=== PATIENT | female | born 1985 | race African-American/Black ===

== ENCOUNTER 2018-01-17 18:27 | Emergency (ER) | payer BC ==
[~2018-01-17] VITALS: Ht 147.3 cm; Wt 78.9 kg
[2018-01-17 18:36] VITALS: BP_SYST 156
[2018-01-17 19:30] LABS: BLOOD, URINE 3+ (NEGATIVE); CLARITY/URINE CLEAR (CLEAR); GLUCOSE,URINE NEGATIVE (NEGATIVE); KETONES,URINE TRACE (NEGATIVE); NITRITE, URINE NEGATIVE (NEGATIVE); PROTEIN URINE TRACE (NEGATIVE); UROBILINOGEN,URINE 0.2 (0.2-1.0)
[2018-01-17] MEDS ORDERED: ASPIRIN 325 MG TABLET PO ONE (19:30)
[2018-01-17 19:39] LABS: BILIRUBIN,URINE NEGATIVE (NEGATIVE); COLOR,URINE AMBER (YELLOW); LEUKOCYTE ESTERASE ,URINE 1+ (NEGATIVE)
[2018-01-17 19:40] LABS: BACTERIA,URINE FEW /HPF (None Seen); MUCUS,URINE None Seen /LPF (None Seen)
[2018-01-17 19:55] LABS: EOSINOPHILS # (AUTO) 0.2 K/uL (0.0-0.4); HEMOGLOBIN 13.3 g/dL (12.0-16.0); LYMPHOCYTES # (AUTO) 1.9 K/uL (1.0-5.5); MONOCYTES # (AUTO) 0.6 K/uL (0.0-1.0); WHITE BLOOD COUNT (AUTO) 6.9 K/uL (4.8-10.8)
[2018-01-17 20:00] LABS: BASOPHILS # (AUTO) 0.1 K/uL (0.0-0.2); BASOPHILS % (AUTO) 1.8 % (0.0-2.0); EOSINOPHILS % (AUTO) 2.6 % (0.0-4.0); HEMATOCRIT 41.1 % (36-48); LYMPHOCYTES % (AUTO) 27.4 % (20.5-51.5); MEAN CORPUSCULAR HEMOGLOBIN 31 pg (27-31); MEAN CORPUSCULAR HGB CONC 32 % (32-36); MEAN CORPUSCULAR VOLUME 96 fL (79.0-98.0); NEUTROPHILS # (AUTO) 4.1 K/uL (1.8-7.7); NEUTROPHILS % (AUTO) 59.2 % (40.0-70.0); PLATELET COUNT (AUTO) 350 K/uL (130-430); RED BLOOD CELL COUNT(AUTO) 4.27 MIL/uL (4.2-6.2); RED CELL DISTRIBUTION WIDTH 13.2 % (9.0-15.0)
[2018-01-17 20:04] LABS: CALCIUM 8.8 mg/dL (8.4-11.0); CREATININE 0.77 mg/dL (0.55-1.30); POTASSIUM 3.3 mmol/L (3.5-5.1)
[2018-01-17 20:09] LABS: ALBUMIN 2.8 g/dL (3.4-4.8); PROTHROMBIN TIME 10.5 SECS (9.5-12.5); TOTAL BILIRUBIN 0.8 mg/dL (0.0-1.0)
[2018-01-17 20:32] LABS: CKMB RELATIVE INDEX 0.2 (0.0-2.9); CREATINE KINASE MB 0.4 ng/mL (0-3.6)
[2018-01-17 22:16] VITALS: BP_SYST 114
== END 2018-01-17 22:17 | disposition home or self-care (01) ==
LOC: SED 18:27
DX: R06.4 Hyperventilation (principal); Z90.710 Acquired absence of both cervix and uterus
CPT/HCPCS: 36415; 71045; 80053; 81000-TC; 82550-TC; 82553-TC; 83880; 84484; 85025; 85379; 85610-TC; 85730-TC; 87086; 93005; 99285

== ENCOUNTER 2018-01-29 16:18 | Emergency (ER) | payer BC, OTHER ==
[~2018-01-29] VITALS: Ht 147.3 cm; Wt 77.6 kg
[2018-01-29 16:40] VITALS: BP_SYST 158
[2018-01-29 17:36] LABS: BILIRUBIN,URINE 2+ (NEGATIVE); BLOOD, URINE 3+ (NEGATIVE); CLARITY/URINE HAZY (CLEAR); COLOR,URINE AMBER (YELLOW); GLUCOSE,URINE NEGATIVE (NEGATIVE); KETONES,URINE 2+ (NEGATIVE); LEUKOCYTE ESTERASE ,URINE TRACE (NEGATIVE); NITRITE, URINE POSITIVE (NEGATIVE); PROTEIN URINE TRACE (NEGATIVE)
[2018-01-29 17:56] LABS: BACTERIA,URINE MODERATE /HPF (None Seen); WBC,URINE 0-3 /HPF (0-3)
[2018-01-29 17:57] LABS: MUCUS,URINE 1+ /LPF (None Seen)
--- NOTE | 2018-01-29 18:33 | NUR ---
BROUGHT BACK TO BED #7 AND REPORT GIVEN TO RADHA
--- NOTE | 2018-01-29 18:40 | NUR ---
Patient to ER via triage for evaluation of abdominal pain with nausea, vomiting, and diarrhea. Patient is awake, alert and oriented in no acute distress, vital signs stable, respirations even and unlabored, skin warm and dry to touch. Patient able to ambulate to room 7 with slow, steady gait. Awaiting evaluation by ER MD/PA, will continue to observe and assess.
[2018-01-29] MEDS ORDERED: NACL 0.9% 1,000 ML IV ONE (18:56)
[2018-01-29] MEDS ORDERED: ONDANSETRON HCL 4 MG/2 ML VIAL IVP ONE (19:00)
--- NOTE | 2018-01-29 19:27 | NUR ---
# 24 gauge angiocath placed to L HAND. Use of asceptic technique. Opsite placed over site. Blood return noted. Flushed with 10 cc of normal saline. No evidence of infiltration noted. Patient tolerated well.
[2018-01-29 19:29] LABS: BASOPHILS # (AUTO) 0.1 K/uL (0.0-0.2); BASOPHILS % (AUTO) 1.8 % (0.0-2.0); EOSINOPHILS % (AUTO) 0.5 % (0.0-4.0); HEMATOCRIT 41.9 % (36-48); HEMOGLOBIN 13.7 g/dL (12.0-16.0); LYMPHOCYTES # (AUTO) 1.4 K/uL (1.0-5.5); LYMPHOCYTES % (AUTO) 17.2 % (20.5-51.5); MEAN CORPUSCULAR HEMOGLOBIN 32 pg (27-31); MEAN CORPUSCULAR HGB CONC 33 % (32-36); MEAN CORPUSCULAR VOLUME 98 fL (79.0-98.0); MONOCYTES # (AUTO) 0.8 K/uL (0.0-1.0); MONOCYTES % (AUTO) 9.2 % (1.7-9.3); NEUTROPHILS # (AUTO) 5.9 K/uL (1.8-7.7); NEUTROPHILS % (AUTO) 71.3 % (40.0-70.0); PLATELET COUNT (AUTO) 265 K/uL (130-430); RED BLOOD CELL COUNT(AUTO) 4.29 MIL/uL (4.2-6.2); RED CELL DISTRIBUTION WIDTH 13.6 % (9.0-15.0); WHITE BLOOD COUNT (AUTO) 8.2 K/uL (4.8-10.8)
--- NOTE | 2018-01-29 19:35 | NUR ---
FLIGHT/TRANSPORT NURSE AT BEDSIDE.
[2018-01-29 19:55] LABS: CALCIUM 9.2 mg/dL (8.4-11.0); CREATININE 0.82 mg/dL (0.55-1.30); POTASSIUM 3.4 mmol/L (3.5-5.1)
[2018-01-29 19:59] LABS: ALBUMIN 3.5 g/dL (3.4-4.8); TOTAL BILIRUBIN 2.4 mg/dL (0.0-1.0)
--- NOTE | 2018-01-29 20:30 | NUR ---
Patient resting queitly in no acute distress, awaiting results and dispo. Will continue to observe and assess.
[2018-01-29 21:00] VITALS: BP_SYST 130
--- NOTE | 2018-01-29 21:00 | NUR ---
Patient given written and verbal discharge instructions and verbalizes understanding. ER MD discussed with patient the results and treatment provided. Patient in stable condition. ID arm band removed. IV catheter removed intact and dressing applied, no active bleeding. Rx of Zofran given. Patient educated on pain management and to follow up with PMD. Pain Scale 0. Opportunity for questions provided and answered. Medication side effect fact sheet provided. Patient left ER in no acute distress, able to ambulate without difficulty with slow, steady gait. No adverse reaction noted to medication. Patient reports that she feels much better now.
== END 2018-01-29 21:00 | disposition home or self-care (01) ==
LOC: SED 16:18
DX: R10.13 Epigastric pain (principal); Z90.89 Acquired absence of other organs
CPT/HCPCS: 36415; 71045; 76700; 80053; 81000; 81025; 83690; 84484; 84703; 85025; 87086; 93005; 96361; 96374; 99285; J2405; J7030

== ENCOUNTER 2018-03-08 07:41 | Emergency (ER) | payer BC, OTHER ==
[~2018-03-08] VITALS: Ht 152.4 cm; Wt 72.6 kg
[2018-03-08 07:41] VITALS: BP_SYST 139
[2018-03-08] MEDS ORDERED: NACL 0.9% 1,000 ML IV ONE (07:43)
[2018-03-08] MEDS ORDERED: LORazepam 2 MG/ML VIAL (FOR ER USE) IVP ONE (07:45)
[2018-03-08] MEDS ORDERED: ONDANSETRON HCL 4 MG/2 ML VIAL IVP ONE (07:45)
[2018-03-08] MEDS ORDERED: levETIRAcetam 500 MG TABLET PO ONE (07:45)
[2018-03-08 08:17] LABS: BASOPHILS # (AUTO) 0.1 K/uL (0.0-0.2); BASOPHILS % (AUTO) 1.5 % (0.0-2.0); EOSINOPHILS # (AUTO) 0.2 K/uL (0.0-0.4); EOSINOPHILS % (AUTO) 2.1 % (0.0-4.0); HEMATOCRIT 41.5 % (36-48); HEMOGLOBIN 13.4 g/dL (12.0-16.0); LYMPHOCYTES # (AUTO) 2.5 K/uL (1.0-5.5); LYMPHOCYTES % (AUTO) 35.1 % (20.5-51.5); MEAN CORPUSCULAR HEMOGLOBIN 32 pg (27-31); MEAN CORPUSCULAR HGB CONC 32 % (32-36); MEAN CORPUSCULAR VOLUME 99 fL (79.0-98.0); MONOCYTES # (AUTO) 0.8 K/uL (0.0-1.0); MONOCYTES % (AUTO) 11.8 % (1.7-9.3); NEUTROPHILS # (AUTO) 3.6 K/uL (1.8-7.7); NEUTROPHILS % (AUTO) 49.5 % (40.0-70.0); PLATELET COUNT (AUTO) 444 K/uL (130-430); RED BLOOD CELL COUNT(AUTO) 4.18 MIL/uL (4.2-6.2); RED CELL DISTRIBUTION WIDTH 14.1 % (9.0-15.0); WHITE BLOOD COUNT (AUTO) 7.2 K/uL (4.8-10.8)
[2018-03-08 08:24] LABS: CHLORIDE 104 mmol/L (98-107); POTASSIUM 3.2 mmol/L (3.5-5.1); SODIUM SERUM 141 mmol/L (136-145)
[2018-03-08 08:25] LABS: CALCIUM 8.2 mg/dL (8.4-11.0); GLUCOSE 126 mg/dL (70-99); UREA NITROGEN, BLOOD 12 mg/dL (8-21)
[2018-03-08 08:26] LABS: PROTHROMBIN TIME 10.4 SECS (9.5-12.5)
[2018-03-08 08:30] LABS: ANION GAP 21 (5-15)
[2018-03-08 08:31] LABS: ALANINE AMINOTRANSFERASE 57 U/L (12-78); ASPARTATE AMINOTRANSFERASE 209 U/L (10-37); CREATININE 1.04 mg/dL (0.55-1.30); GFR AFRICAN AMERICAN 78 mL/min (>90); TOTAL BILIRUBIN 0.8 mg/dL (0.0-1.0)
[2018-03-08 08:32] LABS: ACETAMINOPHEN < 1 ug/mL (1-30); ALCOHOL, BLOOD 107 mg/dL (<10); AMYLASE 67 U/L (0-100); LIPASE 103 U/L (73-393)
[2018-03-08 08:57] LABS: BILIRUBIN,URINE NEGATIVE (NEGATIVE); BLOOD, URINE 3+ (NEGATIVE); CLARITY/URINE SL HAZY (CLEAR); COLOR,URINE YELLOW (YELLOW); GLUCOSE,URINE NEGATIVE (NEGATIVE); KETONES,URINE TRACE (NEGATIVE); LEUKOCYTE ESTERASE ,URINE TRACE (NEGATIVE); NITRITE, URINE NEGATIVE (NEGATIVE); PROTEIN URINE TRACE (NEGATIVE); UROBILINOGEN,URINE 0.2 (0.2-1.0)
[2018-03-08 09:10] LABS: BARBITURATE, URINE NEGATIVE (NEG <=200); BENZODIAZEPINE, URINE NEGATIVE (NEG <=150); CANNABINOID, URINE POSITIVE (NEG <=50); COCAINE, URINE NEGATIVE (NEG <=150); METHAMPHETAMINES SCREEN,URINE NEGATIVE (NEG <=500); OPIATE, URINE NEGATIVE (NEG <=100); PHENCYCLIDINE SCREEN,URINE NEGATIVE (NEG <=25); UR TRICYCLIC ANTIDEPRESSANTS NEGATIVE (NEG <=300); URINE AMPHETAMINE NEGATIVE (NEG <=500); URINE METHADONE NEGATIVE (NEG <=200); URINE OXYCODONE SCREEN NEGATIVE (NEG <=100); URINE PROPOXYPHENE SCREEN NEGATIVE (NEG <=300)
[2018-03-08 09:16] LABS: BACTERIA,URINE FEW /HPF (None Seen); MUCUS,URINE 1+ /LPF (None Seen); RBC,URINE 50-80 /HPF (0-3)
[2018-03-08] MEDS ORDERED: ACETAMINOPHEN 500 MG TABLET PO ONE (09:45)
[2018-03-08] MEDS ORDERED: FOLIC ACID 1 MG, THIAMINE HCL 100 MG, MAGNESIUM SULFATE 1 GM, MVI 10 ML in NACL 0.9% 1,... IV ONE (11:45)
[2018-03-08 14:10] VITALS: BP_SYST 145
== END 2018-03-08 14:10 | disposition home or self-care (01) ==
LOC: SED 07:41
DX: R56.9 Unspecified convulsions (principal); F10.129 Alcohol abuse with intoxication, unspecified
CPT/HCPCS: 36415; 70450; 71045; 80053; 80307; 81000; 82150; 82542; 83690; 85025; 85610; 85730; 87086; 93005; 96365; 96375; 99284; G0480; G0482; J2060; J2405; J3411; J3475; J3490; J7030

== ENCOUNTER 2019-12-15 12:08 | Emergency (ER) | payer OTHER ==
[~2019-12-15] VITALS: Ht 147.3 cm; Wt 65.3 kg
--- NOTE | 2019-12-15 12:09 | NUR ---
Patient to ER bed 01 to gown for evaluation. Side rails up.
--- NOTE | 2019-12-15 12:11 | NUR ---
Patient brought in by ambulance in the ED post ictal seizure today (x2). Denied any chest pain or shortness of breath. Denied any fevers, chills, nausea or vomiting. Patient is alert and oriented x4, respirations even and unlabored, speaking in full sentences. VSS, pain level 0/10. Informed of the approximate wait time. Instructed to notify ED staff for any changes in condition or worsening of symptoms while waiting to be seen by an ED provider. Patient verbalized understanding.
[2019-12-15 12:13] VITALS: BP_SYST 145
--- NOTE | 2019-12-15 12:15 | NUR ---
ECG done at bedside as ordered by Dr. Szymanski. Patient tolerated the procedure well. ER Physician given copy of EKG for review.
[2019-12-15] MEDS ORDERED: KETOROLAC TROMETHAMINE 30 MG VIAL IVP ONE (12:30)
[2019-12-15] MEDS ORDERED: ONDANSETRON HCL 4 MG/2 ML VIAL IVP ONE ×2 (12:30→15:30)
--- NOTE | 2019-12-15 12:30 | NUR ---
ER Dr. Szymanski at bedside examining patient.
[2019-12-15 13:42] LABS: BASOPHILS # (AUTO) 0.1 K/uL (0.0-0.2); BASOPHILS % (AUTO) 0.9 % (0.0-2.0); HEMOGLOBIN 12.9 g/dL (12.0-16.0); LYMPHOCYTES # (AUTO) 0.7 K/uL (1.0-5.5); LYMPHOCYTES % (AUTO) 10.1 % (20.5-51.5); MEAN CORPUSCULAR HEMOGLOBIN 36 pg (27-31); MEAN CORPUSCULAR HGB CONC 35 % (32-36); MEAN CORPUSCULAR VOLUME 104 fL (79.0-98.0); MONOCYTES # (AUTO) 0.6 K/uL (0.0-1.0); MONOCYTES % (AUTO) 8.5 % (1.7-9.3); NEUTROPHILS # (AUTO) 5.3 K/uL (1.8-7.7); NEUTROPHILS % (AUTO) 80.5 % (40.0-70.0); PLATELET COUNT (AUTO) 258 K/uL (130-430); RED BLOOD CELL COUNT(AUTO) 3.55 MIL/uL (4.2-6.2); RED CELL DISTRIBUTION WIDTH 12.9 % (9.0-15.0); WHITE BLOOD COUNT (AUTO) 6.6 K/uL (4.8-10.8)
[2019-12-15 13:50] LABS: ANION GAP 12 (5-15); CHLORIDE 100 mmol/L (98-107); POTASSIUM 3.1 mmol/L (3.5-5.1); SODIUM SERUM 138 mmol/L (136-145)
[2019-12-15 13:51] LABS: CALCIUM 8.4 mg/dL (8.4-11.0); CREATININE 1.03 mg/dL (0.55-1.30); GFR AFRICAN AMERICAN 79 mL/min (>90); GLUCOSE 174 mg/dL (70-99); UREA NITROGEN, BLOOD 12 mg/dL (8-21)
[2019-12-15 13:53] LABS: ACETAMINOPHEN < 1 ug/mL (1-30); ALANINE AMINOTRANSFERASE 27 U/L (12-78); ALBUMIN 3.3 g/dL (3.4-4.8); ALCOHOL, BLOOD < 3 mg/dL (<10); ASPARTATE AMINOTRANSFERASE 81 U/L (10-37)
[2019-12-15] MEDS ORDERED: POTASSIUM CHLORIDE 10 MEQ TAB.PRT.SR PO ONE (14:30)
[2019-12-15] MEDS ORDERED: levETIRAcetam 500 MG TABLET PO ONE (14:45)
--- NOTE | 2019-12-15 15:34 | NUR ---
Administered Zofran IVP as ordered by Dr. Szymanski. Patient tolerated the medications well. See eMAR for details.
[2019-12-15] MEDS ORDERED: ONDANSETRON HCL 4 MG/2 ML VIAL ONE (15:52)
[2019-12-15 16:46] VITALS: BP_SYST 120
== END 2019-12-15 16:46 | disposition home or self-care (01) ==
LOC: SED 12:08
DX: G40.909 Epilepsy, unspecified, not intractable, without status epilepticus (principal); I10 Essential (primary) hypertension; Z88.5 Allergy status to narcotic agent
CPT/HCPCS: 36415; 80053; 85025; 87070; 93005; 96374; 96375; 96376; 99284; G0480; G0481; G0482; J1885; J2405

== ENCOUNTER 2020-03-01 02:50 | Inpatient (IN) | payer OTHER, SELFPAY ==
[~2020-03-01] VITALS: Ht 147.3 cm; Wt 68.9 kg
[2020-03-01 03:00] VITALS: BP_SYST 195
--- NOTE | 2020-03-01 03:08 | NUR ---
Patient to ER bed 2 to gown for evaluation. Side rails up. Report given to BRAIN KHAN.
--- NOTE | 2020-03-01 03:08 | NUR ---
Seizure precautions in place. Seizure pads applied to gurney. Side rails up.
--- NOTE | 2020-03-01 03:10 | NUR ---
Patient BIB by ALS/EMS from home. C/O seizure x today.Per reported, Patient had clonic-tonic seizure 30 secs, Given Zofran 4 mg at the scence. Hx Seizure. Patient had been in [facility] today , given Keppra and discharged around 2030 PM.
--- NOTE | 2020-03-01 03:12 | NUR ---
ER Dr. su at bedside examining patient.
--- NOTE | 2020-03-01 03:37 | NUR ---
Seizure one episode.
--- NOTE | 2020-03-01 03:45 | NUR ---
# 22 gauge angiocath placed to RAC. Use of asceptic technique. Opsite placed over site. Blood return noted. Blood for lab drawn from site. Flushed with 10 cc of normal saline. No evidence of infiltration noted. Patient tolerated well.
--- NOTE | 2020-03-01 04:12 | NUR ---
ER at bedside examining patient while patient had another one episode of seizure, Patient had chest pain - Stat EKG at bedside.
[2020-03-01] MEDS ORDERED: MAGNESIUM SULFATE 50 ML IV ONE ×2 (04:45→04:46)
[2020-03-01 04:49] LABS: BASOPHILS # (AUTO) 0.1 K/uL (0.0-0.2); BASOPHILS % (AUTO) 1.2 % (0.0-2.0); HEMATOCRIT 38.6 % (36-48); HEMOGLOBIN 12.9 g/dL (12.0-16.0); LYMPHOCYTES # (AUTO) 0.7 K/uL (1.0-5.5); LYMPHOCYTES % (AUTO) 7.4 % (20.5-51.5); MEAN CORPUSCULAR HEMOGLOBIN 36 pg (27-31); MEAN CORPUSCULAR HGB CONC 34 % (32-36); MEAN CORPUSCULAR VOLUME 108 fL (79.0-98.0); MONOCYTES # (AUTO) 0.7 K/uL (0.0-1.0); MONOCYTES % (AUTO) 7.9 % (1.7-9.3); NEUTROPHILS # (AUTO) 7.9 K/uL (1.8-7.7); NEUTROPHILS % (AUTO) 83.5 % (40.0-70.0); PLATELET COUNT (AUTO) 406 K/uL (130-430); RED BLOOD CELL COUNT(AUTO) 3.57 MIL/uL (4.2-6.2); RED CELL DISTRIBUTION WIDTH 15.3 % (9.0-15.0); WHITE BLOOD COUNT (AUTO) 9.4 K/uL (4.8-10.8)
[2020-03-01 05:03] LABS: CALCIUM 8.1 mg/dL (8.4-11.0); CREATININE 1.12 mg/dL (0.55-1.30)
[2020-03-01 05:18] LABS: ALBUMIN 3.1 g/dL (3.4-4.8); FREE T4 (FREE THYROXINE) 1.2 ng/dl (0.8-1.5); THYROID STIMULATING HORMONE 2.71 uIu/mL (0.36-3.74)
[2020-03-01 05:19] LABS: BILIRUBIN,URINE NEGATIVE (NEGATIVE); BLOOD, URINE 1+ (NEGATIVE); CLARITY/URINE CLEAR (CLEAR); COLOR,URINE YELLOW (YELLOW); GLUCOSE,URINE NEGATIVE (NEGATIVE); KETONES,URINE 3+ (NEGATIVE); LEUKOCYTE ESTERASE ,URINE NEGATIVE (NEGATIVE); NITRITE, URINE NEGATIVE (NEGATIVE); PROTEIN URINE 1+ (NEGATIVE); UROBILINOGEN,URINE 0.2 (0.2-1.0)
[2020-03-01 05:23] LABS: BACTERIA,URINE FEW /HPF (None Seen); WBC,URINE 0-3 /HPF (0-3)
[2020-03-01 05:30] LABS: BARBITURATE, URINE NEGATIVE (NEG <=200); BENZODIAZEPINE, URINE NEGATIVE (NEG <=150); CANNABINOID, URINE NEGATIVE (NEG <=50); COCAINE, URINE NEGATIVE (NEG <=150); METHAMPHETAMINES SCREEN,URINE NEGATIVE (NEG <=500); OPIATE, URINE NEGATIVE (NEG <=100); PHENCYCLIDINE SCREEN,URINE NEGATIVE (NEG <=25); UR TRICYCLIC ANTIDEPRESSANTS NEGATIVE (NEG <=300); URINE AMPHETAMINE NEGATIVE (NEG <=500); URINE METHADONE NEGATIVE (NEG <=200); URINE OXYCODONE SCREEN NEGATIVE (NEG <=100); URINE PROPOXYPHENE SCREEN NEGATIVE (NEG <=300)
[2020-03-01] MEDS ORDERED: POTASSIUM CHLORIDE 20 MEQ TAB.PRT.SR ONE (05:41)
[2020-03-01] MEDS ORDERED: ONDANSETRON HCL 4 MG/2 ML VIAL ONE (05:42)
[2020-03-01] MEDS ORDERED: POTASSIUM CHLORIDE 10 MEQ TAB.PRT.SR ONE (05:42)
[2020-03-01] MEDS ORDERED: NACL 0.9% 1,000 ML IV ONE (05:45)
[2020-03-01] MEDS ORDERED: POTASSIUM CHLORIDE 10 MEQ TAB.PRT.SR PO ONE (05:45)
[2020-03-01] MEDS ORDERED: POTASSIUM CHLORIDE 20 MEQ TAB.PRT.SR PO ONE (05:45)
[2020-03-01] MEDS ORDERED: ONDANSETRON HCL 4 MG/2 ML VIAL IVP ONE (05:45)
[2020-03-01] MEDS ORDERED: LEVE500T9 PO (05:54)
--- NOTE | 2020-03-01 05:57 | NUR ---
Medication reconciliation completed with information provided by patient. Any prior medication reconciliation on file was reviewed and corrected.
--- NOTE | 2020-03-01 06:00 | NUR ---
Swabs Covid and send to lab.
--- NOTE | 2020-03-01 06:54 | NUR ---
RECEIVED ADMIT ORDERS FROM DR. ODONNELL.
--- NOTE | 2020-03-01 07:21 | NUR ---
REPORT RECEIVED FROM BRAIN KHAN FOR CONTINUING CARE
--- NOTE | 2020-03-01 07:45 | NUR ---
Patient resting quietly. No acute distress noted. Vital signs within normal range.
--- NOTE | 2020-03-01 08:42 | NUR ---
Dietary called for breakfast tray.
--- NOTE | 2020-03-01 08:58 | NUR ---
Patient will be admitted to care of . Admitted to TELE unit. Will go to room 108C. Belongings list completed. Complete and up to date summary report printed. SBAR report to be given at bedside with opportunity for questions.
[2020-03-01] MEDS ORDERED: levETIRAcetam 500 MG TABLET ONE ×2 (09:01)
[2020-03-01] MEDS: levETIRAcetam 500 MG TABLET PO SCH ×2 (09:05→21:00)
--- NOTE | 2020-03-01 09:25 | NUR ---
ADMISSION NOTE: Received patient from ER via gurney. Patient admitted with diagnosis of . Patient is awake, alert, oriented X 4. Patient oriented to hospital room, call light, toileting, pain management and safety-teach back done. Patient informed that Celina will be her nurse and that their room number is 108c. Personal belongings checked and Belongings List documented. Call light within reach.
--- NOTE | 2020-03-01 09:30 | NUR ---
INITIAL NOTES: RECEIVED PATIENT FROM ER. PATIENT IS AWAKE AND ALERT x4 LAYING DOWN IN BED. PATIENT IS TOLERATING OXYGEN ON ROOM AIR WITH NO SIGNS OF DISTRESS OR SHORTNESS OF BREATH NOTED. IV SITE IS PATENT WITH NO SIGNS OF INFILTRATION NOTED. PATIENT DENIES ANY PAIN AT THE MOMENT. PATIENT PUT ON TELEMETRY BOX AND INTO A GOWN. BELONGINGS DONE. PATIENT IN STABLE CONDITION. SAFETY, FALL, ASPIRATION AND SEIZURE PRECAUTIONS ARE IN PLACE. BED LOCKED IN LOWEST POSITION WITH CALL LIGHT IN REACH. WILL CONTINUE TO MONITOR PATIENT FOR ANY CHANGES.
--- NOTE | 2020-03-01 09:48 | NUR ---
CONSULTATION PAGED/CALLED Reason for Consultation: CARDIAC ARRHYTH Person Who was Notified: RUEL Consulting Physician: MIKKI Ordering Physician: BLAS
--- NOTE | 2020-03-01 09:50 | NUR ---
CONSULTATION PAGED/CALLED Reason for Consultation: PSEUDOSEIZURES Person Who was Notified: MAZIN Consulting Physician: JUANIS PINTO Cmm Technician Specialty: NEURO Ordering Physician: BLAS
[2020-03-01 10:13] VITALS: BP_SYST 138
[2020-03-01 10:14] VITALS: BP_SYST 138
--- NOTE | 2020-03-01 10:27 | NUR ---
RN ROUNDS: PATIENT IS AWAKE AND ALERT x4 LAYING DOWN IN BED. PATIENT IS TOLERATING OXYGEN ON ROOM AIR WITH NO SIGNS OF DISTRESS OR SHORTNESS OF BREATH NOTED. IV SITE IS PATENT WITH NO SIGNS OF INFILTRATION NOTED. PATIENT DENIES ANY PAIN AT THE MOMENT. PATIENT IN STABLE CONDITION. WILL CONTINUE TO MONITOR PATIENT FOR ANY CHANGES.
--- NOTE | 2020-03-01 12:21 | NUR ---
RN ROUNDS: PATIENT IS AWAKE AND ALERT x4 SITTING DOWN IN BED. PATIENT IS TOLERATING OXYGEN ON ROOM AIR WITH NO SIGNS OF DISTRESS OR SHORTNESS OF BREATH NOTED. NEW GOWN GIVEN TO PATIENT PER REQUEST. IV SITE IS PATENT WITH NO SIGNS OF INFILTRATION NOTED. PATIENT IN STABLE CONDITION. WILL CONTINUE TO MONITOR PATIENT FOR ANY CHANGES.
--- NOTE | 2020-03-01 14:10 | NUR ---
SEIZURE: INFORMED BY THE MEDICAL ESTHETICIAN THAT PATIENT IS CURRENTLY HAVING SEIZURES WHILE HE IS PERFORMING THE EEG. INFORMED CHARGE NURSE DANIELA. DANIELA ZARAGOZA MD AND RECEIVED ORDER FOR ATIVAN. WILL OVERRIDE AND GIVE TO PATIENT.
[2020-03-01] MEDS ORDERED: LORazepam 2 MG/ML VIAL ONE (14:14)
--- NOTE | 2020-03-01 14:16 | NUR ---
HIGH ALERT NOTE: Called Dr. ODONNELL back identified within the medical roster to verify physician authenticity FOR ATIVAN ORDERS
--- NOTE | 2020-03-01 16:45 | NUR ---
RN ROUNDS: PATIENT IS AWAKE AND ALERT x 3 WALKING AROUND HER ROOM. PATIENT CONTINUES TO TAKE OFF HER LEADS. EDUCATED PATIENT THAT SHE NEEDS TO KEEP THEM ON. PATIENT VERBALIZED UNDERSTANDING. IV SITE IS PATENT WITH NO SIGNS OF INFILTRATION NOTED. PATIENT IN STABLE CONDITION. WILL CONTINUE TO MONITOR PATIENT FOR ANY CHANGES.
--- NOTE | 2020-03-01 18:37 | NUR ---
CLOSING NOTES: PATIENT IS AWAKE AND ALERT x4 SITTING UP IN BED. PATIENT IS TOLERATING OXYGEN ON ROOM AIR WITH NO SIGNS OF DISTRESS OR SHORTNESS OF BREATH NOTED. IV SITE IS PATENT WITH NO SIGNS OF INFILTRATION NOTED. PATIENT DENIES ANY PAIN AT THE MOMENT. PATIENT IN STABLE CONDITION. SAFETY, FALL, ASPIRATION AND SEIZURE PRECAUTIONS REMAINED IN PLACE THROUGHOUT THE SHIFT. BED LOCKED IN LOWEST POSITION WITH CALL LIGHT IN REACH. WILL ENDORSE PATIENT CARE TO ONCOMING DIRECTOR OF FINANCIAL AID NURSE.
[2020-03-01 20:39] VITALS: BP_SYST 131
--- NOTE | 2020-03-02 01:50 | NUR ---
Non compliant with spectrographer. Education regarding importance of heart function during hospitalization for her care. Patient continues to refuse. Luis Beltran RN
[2020-03-02 04:21] VITALS: BP_SYST 137
[2020-03-02 06:29] LABS: BASOPHILS # (AUTO) 0.1 K/uL (0.0-0.2); BASOPHILS % (AUTO) 0.6 % (0.0-2.0); EOSINOPHILS # (AUTO) 0.1 K/uL (0.0-0.4); EOSINOPHILS % (AUTO) 0.8 % (0.0-4.0); HEMATOCRIT 36.1 % (36-48); HEMOGLOBIN 12.1 g/dL (12.0-16.0); LYMPHOCYTES # (AUTO) 1.4 K/uL (1.0-5.5); LYMPHOCYTES % (AUTO) 15.2 % (20.5-51.5); MEAN CORPUSCULAR HEMOGLOBIN 36 pg (27-31); MEAN CORPUSCULAR HGB CONC 34 % (32-36); MEAN CORPUSCULAR VOLUME 108 fL (79.0-98.0); MONOCYTES # (AUTO) 0.9 K/uL (0.0-1.0); MONOCYTES % (AUTO) 9.8 % (1.7-9.3); NEUTROPHILS # (AUTO) 6.9 K/uL (1.8-7.7); NEUTROPHILS % (AUTO) 73.6 % (40.0-70.0); PLATELET COUNT (AUTO) 350 K/uL (130-430); RED BLOOD CELL COUNT(AUTO) 3.35 MIL/uL (4.2-6.2); RED CELL DISTRIBUTION WIDTH 14.9 % (9.0-15.0); WHITE BLOOD COUNT (AUTO) 9.4 K/uL (4.8-10.8)
--- NOTE | 2020-03-02 07:15 | NUR ---
Handoff with day team, Louise. Luis Beltran RN
[2020-03-02 07:22] LABS: ALANINE AMINOTRANSFERASE 41 U/L (12-78); ALBUMIN 3.3 g/dL (3.4-4.8); ANION GAP 10 (5-15); ASPARTATE AMINOTRANSFERASE 136 U/L (10-37); CALCIUM 8.3 mg/dL (8.4-11.0); CHLORIDE 103 mmol/L (98-107); CREATININE 0.82 mg/dL (0.55-1.30); FREE T4 (FREE THYROXINE) 1.4 ng/dl (0.8-1.5); GLUCOSE 81 mg/dL (70-99); POTASSIUM 3.3 mmol/L (3.5-5.1); SODIUM SERUM 138 mmol/L (136-145); THYROID STIMULATING HORMONE 3.59 uIu/mL (0.36-3.74); TOTAL BILIRUBIN 2.4 mg/dL (0.0-1.0); UREA NITROGEN, BLOOD 8 mg/dL (8-21)
--- NOTE | 2020-03-02 07:45 | NUR ---
OPENING NOTES: RECEIVED PATIENT FROM MUSEUM EXHIBIT TECHNICIAN NURSE. PATIENT IS AWAKE AND ALERT x4 SITTING UP IN BED. PATIENT IS TOLERATING OXYGEN ON ROOM AIR WITH NO SIGNS OF DISTRESS OR SHORTNESS OF BREATH NOTED. PATIENT DENIES ANY PAIN AT THE MOMENT. IV SITE IS PATENT WITH NO SIGNS OF INFILTRATION NOTED. PATIENT IN STABLE CONDITION. SAFETY, FALL, SEIZURE AND ASPIRATION PRECAUTIONS ARE IN PLACE. BED LOCKED IN LOWEST POSITION WITH CALL LIGHT IN REACH. WILL CONTINUE TO MONITOR PATIENT FOR ANY CHANGES.
[2020-03-02 07:52] LABS: GFR AFRICAN AMERICAN 102 mL/min (>90)
[2020-03-02 08:00] VITALS: BP_SYST 184
[2020-03-02] MEDS: levETIRAcetam 500 MG TABLET PO SCH ×2 (08:39→21:41)
[2020-03-02] MEDS ORDERED: METOPROLOL SUCCINATE 25 MG TAB.SR.24H (TOPROL XL) PO SCH (09:00)
--- NOTE | 2020-03-02 09:19 | NUR ---
CONSULTATION PAGED REASON FOR CONSULTATION:SYNCOPE WAS CONSULT CALLED?Y PERSON WHO WAS NOTIFIED:JESSE CONSULTING PHYSICIAN:SHANA RODRIGUEZ RAG PRODUCTION WORKER SPECIALTY:CARDIO RAG PRODUCTION WORKER PHONE NUMBER:[phone] ORDERING PHYSICIAN:BEVERLY CALDWELL
[2020-03-02] MEDS ORDERED: MAGNESIUM SULFATE 50 ML IV ONE (09:30)
[2020-03-02] MEDS ORDERED: POTASSIUM CHLORIDE 20 MEQ/PKT PACKET PO ONE (09:30)
[2020-03-02] MEDS ORDERED: PROPRANOLOL HCL 10 MG TABLET (INDERAL) PO ONE (09:30)
[2020-03-02] MEDS ORDERED: PROPRANOLOL HCL 10 MG TABLET (INDERAL) ONE (09:37)
--- NOTE | 2020-03-02 10:15 | NUR ---
IV: IV CATHETER REMOVED BY PATIENT NO ACTIVE BLEEDING NOTED. CATHETER INTACT. NEW IV INSERTED INTO RIGHT SHOULDER GAUGE 22. SUCCESSFUL AFTER ONE ATTEMPT. ASEPTIC TECHNIQUE USED. PATIENT TOLERATED WELL. IV INFUSING ORDERED.
--- NOTE | 2020-03-02 10:44 | NUR ---
RN ROUNDS: PATIENT IS AWAKE, ALERT X3 LAYING DOWN IN BED. PATIENT IS TOLERATING OXYGEN ON ROOM AIR WITH NO SIGNS OF DISTRESS OR SHORTNESS OF BREATH NOTED. IV LINE PATENT AND INTACT RUNNING FLUIDS ORDERED. DENIES ANY PAIN AT THE MOMENT. PATIENT IS IN STABLE CONDITION. WILL CONTINUE TO MONITOR PATIENT FOR ANY CHANGES.
[2020-03-02] MEDS: LORazepam 2 MG/ML VIAL IVP PRN ×3 (12:09→22:47)
--- NOTE | 2020-03-02 12:17 | NUR ---
IV: PATIENT REMOVED IV SITE. CATHETER INTACT. NO ACTIVE BLEEDING NOTED. NEW IV INSERTED INTO RIGHT UPPER ARM 22 G. SUCCESSFUL AFTER ONE ATTEMPT. ASEPTIC TECHNIQUE USED. IV PATENT WITH NO SIGNS OF INFILTRATION NOTED. INFORMED PATIENT NOT TO REMOVE IV. PATIENT VERBALIZED UNDERSTANDING. WILL CONTINUE TO MONITOR PATIENT.
--- NOTE | 2020-03-02 12:37 | NUR ---
RN ROUNDS: PATIENT IS AWAKE AND ALERT x4 BUT VERY CONFUSED AND HALLUCINATING. CALLED PATIENT'S MOTHER TO ASK QUESTIONS. ANSWERED ALL QUESTIONS TO THE BEST OF MY ABILITY. TRANSFERRED MOTHER'S CALL TO PATIENT. RECONNECTED PATIENT TO TELEMETRY BOX. IV SITE IS PATENT WITH NO SIGNS OF INFILTRATION NOTED. PATIENT IN STABLE CONDITION. WILL CONTINUE TO MONITOR PATIENT FOR ANY CHANGES.
[2020-03-02 12:57] VITALS: BP_SYST 160
--- NOTE | 2020-03-02 13:01 | NUR ---
PAGED PAGED BEVERLY CALDWELL AT [phone] SPOKE WITH PANTERA.
--- NOTE | 2020-03-02 13:30 | NUR ---
CALLED : CALLED DR. KAYE REGARDING HIGH BLOOD PRESSURE 160/103. STATED TO JUST MONITOR PATIENT. WILL NOT GIVE ANY MEDICATIONS.
--- NOTE | 2020-03-02 14:10 | NUR ---
RN ROUNDS: PATIENT IS AWAKE AND ALERT x4 SITTING ON BED BUT VERY CONFUSED AND HALLUCINATING. PATIENT TOLERATING OXYGEN VIA ROOM AIR. DENIES ANY PAIN AT THE MOMENT. IV SITE IS PATENT WITH NO SIGNS OF INFILTRATION NOTED. PATIENT IN STABLE CONDITION. WILL CONTINUE TO MONITOR PATIENT FOR ANY CHANGES.
[2020-03-02 16:00] VITALS: BP_SYST 156
--- NOTE | 2020-03-02 16:22 | NUR ---
RN ROUNDS: PATIENT IS AWAKE AND ALERT x4 LAYING DOWN ON BED. PATIENT TOLERATING OXYGEN VIA ROOM AIR. DENIES ANY PAIN AT THE MOMENT. IV SITE IS PATENT WITH NO SIGNS OF INFILTRATION NOTED. PATIENT IN STABLE CONDITION. WILL CONTINUE TO MONITOR PATIENT FOR ANY CHANGES.
[2020-03-02 16:27] VITALS: BP_SYST 156
[2020-03-02] MEDS ORDERED: POTASSIUM CHLORIDE 20 MEQ TAB.PRT.SR PO ONE (18:30)
--- NOTE | 2020-03-02 18:30 | NUR ---
HIGH ALERT NOTE: Spoke with Dr. Jones in person on the floor and identified within the medical roster to verify physician authenticity regarding one time dose of potassium.
--- NOTE | 2020-03-02 18:34 | NUR ---
CLOSING NOTES: PATIENT IS AWAKE AND ALERT x4 SITTING UP IN BED. PATIENT IS TOLERATING OXYGEN ON ROOM AIR WITH NO SIGNS OF DISTRESS OR SHORTNESS OF BREATH NOTED. PATIENT DENIES ANY PAIN AT THE MOMENT. PATIENT CONTINUES TO REMOVE TELEMETRY BOX AND REFUSES TO KEEP IT ON. IV SITE IS PATENT WITH NO SIGNS OF INFILTRATION NOTED AND WRAPPED WITH KERLIX. PATIENT IN STABLE CONDITION. SAFETY, FALL, SEIZURE AND ASPIRATION PRECAUTIONS REMAINED IN PLACE THROUGHOUT THE SHIFT. BED LOCKED IN LOWEST POSITION WITH CALL LIGHT IN REACH. WILL ENDORSE PATIENT CARE TO ONCOMING FUEL EFFICIENT AIRCRAFT DESIGNER NURSE.
--- NOTE | 2020-03-02 18:50 | NUR ---
CONFUSED: WITNESSED PATIENT LAY DOWN ON THE FLOOR SAYING THAT HER SISTER NEEDED HER HELP. ASSISTED PATIENT UP AND TRIED TO REORIENT PATIENT. PATIENT CONFUSED AND HALLUCINATING. PATIENT BEING MOVED FROM 103A TO 105A. ALL BELONGINGS SENT WITH PATIENT TO NEW ROOM.
--- NOTE | 2020-03-02 19:08 | NUR ---
Late Entry due to patient care: Pt very confused and agitated. Pt kept on wandering around hallway, Nurses' station and other patients' rooms. Pt also combative and hitting staff. Pt refused to go back to her room. Pt incoherent and kept on saying, "Nine hundred dollars." Pt also took off her gambling monitor. Security was called and Ativan 1mg was given IV for agitation. Fall, seizure and safety precautions are in place.
--- NOTE | 2020-03-02 19:20 | NUR ---
Pt remains confused and agitated. Pt kept on attempting to jump out of bed. Sitter ordered by Dr. Oglesby.
--- NOTE | 2020-03-02 19:58 | NUR ---
Pt continues to be agitated and trying to get out of bed. Pt remains very confused and incoherent. Pt unable to state her name and not aware of time of day, where she is and any event at this time. New order received from Dr. Oglesby for bilateral soft wrist restraints.
[2020-03-02 20:00] VITALS: BP_SYST 154
--- NOTE | 2020-03-02 20:00 | NUR ---
Left voice mail message for pt's mother to call back.
--- NOTE | 2020-03-02 20:46 | NUR ---
Pt was incontinent of large amount of urine and brownish stool. Hygiene provided by Sitter. Pt remains confused and disoriented.
[2020-03-02] MEDS ORDERED: PROPRANOLOL HCL 10 MG TABLET (INDERAL) PO SCH (21:00)
[2020-03-02] MEDS: PROPRANOLOL HCL 10 MG TABLET (INDERAL) PO SCH (21:42)
--- NOTE | 2020-03-02 21:42 | NUR ---
HS medications given with apple sauce. Pt remains very confused and disoriented. Bilateral soft wrist restraints are on and no circulatory impairment noted. Sitter is at the bedside. Pt's mother is yet to call back.
--- NOTE | 2020-03-02 22:30 | NUR ---
RN left another voice mail message at [phone] for pt's mother to call back.
--- NOTE | 2020-03-02 22:47 | NUR ---
Pt unfastened left wrist restraint and also kicked sitter who was attempting to reapply left wrist restraint. Pt remains agitated, confused and disoriented. Ativan 1mg given IVP. No seizure activity noted. Side rails are padded.
[2020-03-03] VITALS: BP_SYST 145
--- NOTE | 2020-03-03 | NUR ---
Pt is awake and remains confused / disoriented. No seizure activity. Sitter is at the bedside.
--- NOTE | 2020-03-03 01:11 | NUR ---
Consultation Paged Reason for Consultation: bizarre behavior Was consult called: Y Person who was notified: Briana Consulting Physician: Cam Brooks Ordering Physician: Dr. Oglesby
--- NOTE | 2020-03-03 02:00 | NUR ---
Pt is sleeping quietly in bed. No seizure activity noted. Sitter is at the bedside.
[2020-03-03] MEDS: LORazepam 2 MG/ML VIAL IVP PRN (03:54)
--- NOTE | 2020-03-03 03:54 | NUR ---
Ativan 1mg given IVP for agitation. No seizure activity noted. Side rails are padded. Sitter is in the room with pt.
--- NOTE | 2020-03-03 05:30 | NUR ---
Pt is awake and remains confused/disoriented. No seizure activity noted. Sitter is at the bedside.
[2020-03-03 06:42] LABS: BASOPHILS # (AUTO) 0.1 K/uL (0.0-0.2); BASOPHILS % (AUTO) 0.7 % (0.0-2.0); EOSINOPHILS # (AUTO) 0.3 K/uL (0.0-0.4); EOSINOPHILS % (AUTO) 1.7 % (0.0-4.0); HEMATOCRIT 36.3 % (36-48); HEMOGLOBIN 12.5 g/dL (12.0-16.0); LYMPHOCYTES # (AUTO) 1.4 K/uL (1.0-5.5); LYMPHOCYTES % (AUTO) 9.5 % (20.5-51.5); MEAN CORPUSCULAR HEMOGLOBIN 37 pg (27-31); MEAN CORPUSCULAR HGB CONC 34 % (32-36); MEAN CORPUSCULAR VOLUME 107 fL (79.0-98.0); MONOCYTES # (AUTO) 1.2 K/uL (0.0-1.0); MONOCYTES % (AUTO) 8.1 % (1.7-9.3); NEUTROPHILS # (AUTO) 12.1 K/uL (1.8-7.7); PLATELET COUNT (AUTO) 341 K/uL (130-430); RED CELL DISTRIBUTION WIDTH 14.4 % (9.0-15.0); WHITE BLOOD COUNT (AUTO) 15.1 K/uL (4.8-10.8)
--- NOTE | 2020-03-03 06:58 | NUR ---
RN left another voice mail message at [phone] for pt's mother to call back.
--- NOTE | 2020-03-03 07:30 | NUR ---
OPENING NOTES: RECEIVED PATIENT FROM VESSEL CAPTAIN NURSE. PATIENT IS ASLEEP LAYING DOWN IN BED. PATIENT IS TOLERATING OXYGEN ON ROOM AIR WITH NO SIGNS OF DISTRESS OR SHORTNESS OF BREATH NOTED. PATIENT DENIES ANY PAIN AT THE MOMENT. IV SITE IS PATENT WITH NO SIGNS OF INFILTRATION NOTED. PATIENT IN STABLE CONDITION. SAFETY, FALL, SEIZURE AND ASPIRATION PRECAUTIONS ARE IN PLACE. BED LOCKED IN LOWEST POSITION WITH CALL LIGHT IN REACH. WILL CONTINUE TO MONITOR PATIENT FOR ANY CHANGES.
[2020-03-03 08:00] VITALS: BP_SYST 167
[2020-03-03] MEDS ORDERED: POTASSIUM CHLORIDE 20 MEQ/PKT PACKET PO SCH (09:00)
[2020-03-03] MEDS: PROPRANOLOL HCL 10 MG TABLET (INDERAL) PO SCH ×2 (10:15→21:22)
[2020-03-03] MEDS: levETIRAcetam 500 MG TABLET PO SCH ×2 (10:15→21:21)
[2020-03-03] MEDS: POTASSIUM CHLORIDE 20 MEQ/PKT PACKET PO SCH (10:16)
[2020-03-03 12:00] VITALS: BP_SYST 145
--- NOTE | 2020-03-03 12:35 | NUR ---
RN ROUNDS: PATIENT IS AWAKE, ALERT X3 LAYING DOWN IN BED. PATIENT IS TOLERATING OXYGEN ON ROOM AIR WITH NO SIGNS OF DISTRESS OR SHORTNESS OF BREATH NOTED. IV LINE PATENT AND INTACT WITH NO SIGNS OF INFILTRATION NOTED. DENIES ANY PAIN AT THE MOMENT. PATIENT IS IN STABLE CONDITION. WILL CONTINUE TO MONITOR PATIENT FOR ANY CHANGES.
--- NOTE | 2020-03-03 12:36 | NUR ---
INFORMED BRAIN NEAL, ORIENTEE OF [facility] THAT PT IS OFF MONITOR, LEADS OFF.
[2020-03-03 13:08] LABS: CALCIUM 8.4 mg/dL (8.4-11.0); CREATININE 0.64 mg/dL (0.55-1.30); POTASSIUM 4.1 mmol/L (3.5-5.1); TOTAL BILIRUBIN 2.5 mg/dL (0.0-1.0)
--- NOTE | 2020-03-03 13:31 | NUR ---
2ND TIME TO INFORM PT IS STILL OFF MONITOR. SPOKE TO CHENTE PRECEPTOR OF VAL.
--- NOTE | 2020-03-03 13:35 | NUR ---
Incontinent patient incontinent of urine, patient cleaned and linen changed, patient tolerated well, no acute distress noted, cardiac tele monitor in place, sitter at bedside.
[2020-03-03 16:00] VITALS: BP_SYST 160
--- NOTE | 2020-03-03 16:20 | NUR ---
RN ROUNDS: PATIENT IS AWAKE AND ALERT x 3 LAYING DOWN IN BED. PATIENT CONTINUES TO TAKE OFF HER LEADS. EDUCATED PATIENT THAT SHE NEEDS TO KEEP THEM ON. PATIENT VERBALIZED UNDERSTANDING. IV SITE IS PATENT WITH NO SIGNS OF INFILTRATION NOTED. PATIENT IN STABLE CONDITION. WILL CONTINUE TO MONITOR PATIENT FOR ANY CHANGES.
--- NOTE | 2020-03-03 19:39 | NUR ---
CLOSING NOTES: BED SIDE REPORT TO DESIGN ENG RN. PATIENT IS ASLEEP LAYING DOWN IN BED. PATIENT IS TOLERATING OXYGEN ON ROOM AIR WITH NO SIGNS OF DISTRESS OR SHORTNESS OF BREATH NOTED. PATIENT DENIES ANY PAIN AT THE MOMENT. IV SITE IS PATENT WITH NO SIGNS OF INFILTRATION NOTED. PATIENT IN STABLE CONDITION. SAFETY, FALL, SEIZURE AND ASPIRATION PRECAUTIONS REMAINED IN PLACE. BED LOCKED IN LOWEST POSITION WITH CALL LIGHT IN REACH. WILL CONTINUE TO MONITOR PATIENT FOR ANY CHANGES. SITTER AT BEDSIDE. CARE ENDORSE TO DESIGN ENG RN.
[2020-03-03 20:00] VITALS: BP_SYST 133
--- NOTE | 2020-03-03 20:37 | NUR ---
Initial note Received lying in bed with eyes closed, easily aroused. Alert and oriented x 3. No respiratory distress noted on room air. Denies pain or discomfort. On bilateral wrist restraints. No agitation noted, cooperative with care. Aware of reason for restraints and conditions for release. Seizure pads in place. Instructed to notify RN if need assistance,verbalized understanding. Bed in low,locked position. Bed alarm. Fall precautions in place. Will continue to monitor.
--- NOTE | 2020-03-03 21:28 | NUR ---
Due PO medications administered. Tolerated well.
--- NOTE | 2020-03-03 23:37 | NUR ---
Resting quietly, no agitation. Cooperative with care. Repositioned in bed. Restraints released for 10 minutes and reapplied.
[2020-03-04 00:09] VITALS: BP_SYST 138
--- NOTE | 2020-03-04 04:15 | NUR ---
Requested to go to bathroom. Ambulated with steady gait. Stated had bowel movement. Able to ambulate from bathroom to bed without assistance. Cooperative with care, no agitation noted. Placed back on restraints.
[2020-03-04 07:30] LABS: CALCIUM 8.6 mg/dL (8.4-11.0); CREATININE 0.85 mg/dL (0.55-1.30); POTASSIUM 3.5 mmol/L (3.5-5.1)
--- NOTE | 2020-03-04 08:00 | NUR ---
OPENING NOTES ALRT AND ORIENTED AT THIS TIME, DISCONTINUED RENATO WRIST RESTRAINT, WILL CONTINUE TO MONITOR PATIENT, HAD BREAKFAST, ASSISTED TO THE BATHROOM, STILL NEEDS ASSISTANCE, UNSTEADY SOMETIMES, HAD A BM, HAD A GOO MAURICE CARE. SEEN BY DR ODONNELL.
[2020-03-04] MEDS: PROPRANOLOL HCL 10 MG TABLET (INDERAL) PO SCH ×2 (08:35→20:35)
[2020-03-04] MEDS: levETIRAcetam 500 MG TABLET PO SCH ×2 (08:35→20:35)
[2020-03-04] MEDS: POTASSIUM CHLORIDE 20 MEQ/PKT PACKET PO SCH (08:35)
[2020-03-04 08:38] LABS: BASOPHILS # (AUTO) 0.1 K/uL (0.0-0.2); BASOPHILS % (AUTO) 0.9 % (0.0-2.0); EOSINOPHILS # (AUTO) 0.2 K/uL (0.0-0.4); EOSINOPHILS % (AUTO) 1.6 % (0.0-4.0); HEMATOCRIT 38.1 % (36-48); HEMOGLOBIN 12.7 g/dL (12.0-16.0); LYMPHOCYTES # (AUTO) 1.7 K/uL (1.0-5.5); LYMPHOCYTES % (AUTO) 15.6 % (20.5-51.5); MEAN CORPUSCULAR HEMOGLOBIN 36 pg (27-31); MEAN CORPUSCULAR HGB CONC 34 % (32-36); MEAN CORPUSCULAR VOLUME 108 fL (79.0-98.0); MONOCYTES # (AUTO) 1.4 K/uL (0.0-1.0); NEUTROPHILS # (AUTO) 7.6 K/uL (1.8-7.7); NEUTROPHILS % (AUTO) 68.9 % (40.0-70.0); PLATELET COUNT (AUTO) 324 K/uL (130-430); RED BLOOD CELL COUNT(AUTO) 3.52 MIL/uL (4.2-6.2); RED CELL DISTRIBUTION WIDTH 14.7 % (9.0-15.0)
[2020-03-04 09:25] VITALS: BP_SYST 133
--- NOTE | 2020-03-04 10:00 | NUR ---
HALLUCINATION PATINE HEARD SOMEONE TALKING IN THE PHONE. PATIENT WAS LAUGHING AND SAID SHE HEARD ONE LADY TALKING TO HER FRIEND THAT SHE IS EATING A PAPER.
--- NOTE | 2020-03-04 11:30 | NUR ---
NEW IV SITE RE INSERTED RIGHT UPPER ARM SWOLLEN, IV HEPLOCK DC'D, NEW IV SITE RE INSERTED ON LEFT FOREARM.
[2020-03-04 12:00] VITALS: BP_SYST 128
[2020-03-04 16:00] VITALS: BP_SYST 126
--- NOTE | 2020-03-04 18:00 | NUR ---
NOTES AMBULATE AROUND THE HALLWAY, PATIENT COOPERATIVE BUT STILL WITH EPISODES OF ACTING WEIRD LIKE REMOVING HER TELEMETRY BOX WITH UNKNOWN REASON.
[2020-03-04 20:00] VITALS: BP_SYST 137
--- NOTE | 2020-03-04 20:00 | NUR ---
Opening notes Pt AAOx4, VSS, afebrile. No s/s distress noted. Pt ambulates to bathroom. IV saline lock L. FA 22G clear and patent. Sitter at bedside. Bed low, locked, siderails up x3, seizure precuaiton in place. Pt finished her dinner. To monitor.
[2020-03-04] MEDS: MAGNESIUM OXIDE 400 MG TABLET PO SCH (20:39)
--- NOTE | 2020-03-04 23:29 | NUR ---
Rounds Pt asleep, no s/s distress noted. Sitter at bedside. To monitor.
[2020-03-05 00:30] VITALS: BP_SYST 100
--- NOTE | 2020-03-05 02:30 | NUR ---
Bathroom Pt ambulated to bathroom w/ standby assist. Pt voided. No s/s distress noted. Safety maintained. To monitor.
--- NOTE | 2020-03-05 05:20 | NUR ---
EKG at bedside.
--- NOTE | 2020-03-05 06:20 | NUR ---
Closing notes Pt asleep no s/s distress noted. Pt ambulates to bathroom. IV saline lock L. FA 22G clear and patent. Sitter at bedside. Bed low, locked, siderails up x3, seizure precaution in place. To endorse to AM nurse.
--- NOTE | 2020-03-05 08:00 | NUR ---
Initial notes awake and oriented, calm and conversing well to staff,denies any pain or discomfort. no distress noted. Will continue to monitor.
[2020-03-05 08:02] VITALS: BP_SYST 116
[2020-03-05] MEDS: levETIRAcetam 500 MG TABLET PO SCH (08:20)
[2020-03-05] MEDS: POTASSIUM CHLORIDE 20 MEQ/PKT PACKET PO SCH (08:20)
[2020-03-05] MEDS: MAGNESIUM OXIDE 400 MG TABLET PO SCH (08:20)
[2020-03-05] MEDS: PROPRANOLOL HCL 10 MG TABLET (INDERAL) PO SCH (08:21)
--- NOTE | 2020-03-05 10:00 | NUR ---
Notes- resting, calm and response appropriately. Ambulate with steady gait to the bathroom
[2020-03-05 10:05] LABS: BASOPHILS # (AUTO) 0.1 K/uL (0.0-0.2); BASOPHILS % (AUTO) 0.7 % (0.0-2.0); EOSINOPHILS # (AUTO) 0.1 K/uL (0.0-0.4); EOSINOPHILS % (AUTO) 1.8 % (0.0-4.0); HEMATOCRIT 39.6 % (36-48); HEMOGLOBIN 13.4 g/dL (12.0-16.0); LYMPHOCYTES # (AUTO) 1.6 K/uL (1.0-5.5); LYMPHOCYTES % (AUTO) 18.7 % (20.5-51.5); MEAN CORPUSCULAR HEMOGLOBIN 37 pg (27-31); MEAN CORPUSCULAR HGB CONC 34 % (32-36); MEAN CORPUSCULAR VOLUME 109 fL (79.0-98.0); MONOCYTES # (AUTO) 1.2 K/uL (0.0-1.0); MONOCYTES % (AUTO) 14.5 % (1.7-9.3); NEUTROPHILS # (AUTO) 5.4 K/uL (1.8-7.7); NEUTROPHILS % (AUTO) 64.3 % (40.0-70.0); PLATELET COUNT (AUTO) 346 K/uL (130-430); RED BLOOD CELL COUNT(AUTO) 3.64 MIL/uL (4.2-6.2); RED CELL DISTRIBUTION WIDTH 15.1 % (9.0-15.0); WHITE BLOOD COUNT (AUTO) 8.5 K/uL (4.8-10.8)
[2020-03-05 10:06] LABS: ALBUMIN 3.1 g/dL (3.4-4.8); CALCIUM 9.3 mg/dL (8.4-11.0); CREATININE 0.91 mg/dL (0.55-1.30); POTASSIUM 4.7 mmol/L (3.5-5.1); TOTAL BILIRUBIN 1.3 mg/dL (0.0-1.0)
--- NOTE | 2020-03-05 11:30 | NUR ---
Notes- Dr. Eaton spoke to patient's mom Jess.
[2020-03-05 11:55] VITALS: BP_SYST 120
[2020-03-05] MEDS ORDERED: PROP10TA10 PO (12:01)
[2020-03-05] MEDS ORDERED: MAGN400T10 PO (12:02)
[2020-03-05 12:42] VITALS: BP_SYST 120
--- NOTE | 2020-03-05 12:50 | NUR ---
discharge- D/C pt home, awake and oriented. denies any pain or discomfort. discharge instruction and prescription given and discussed with patient and family. patient and family verbalize understanding. arm band and ivl removed.
== END 2020-03-05 12:50 | disposition home or self-care (01) | DRG 101 ==
LOC: SED 02:50 → STU 06:46
PROVIDERS: ADMIT Internal Medicine; ATTEND Internal Medicine
PROC: 4A00X4Z Measurement of Central Nervous Electrical Activity, External Approach (ICD-10-PCS; principal; 2020-03-02)
DX: G40.909 Epilepsy, unspecified, not intractable, without status epilepticus (principal); I47.2 Ventricular tachycardia; I49.9 Cardiac arrhythmia, unspecified; I10 Essential (primary) hypertension; E87.6 Hypokalemia; E83.42 Hypomagnesemia; E66.9 Obesity, unspecified; F41.9 Anxiety disorder, unspecified; Z20.828 Contact with and (suspected) exposure to other viral communicable diseases; F99 Mental disorder, not otherwise specified; Z78.1 Physical restraint status; Z79.899 Other long term (current) drug therapy; Z81.8 Family history of other mental and behavioral disorders; Z88.5 Allergy status to narcotic agent
CPT/HCPCS: 36415; 71045; 80048; 80053; 80307; 81000-TC; 82140-TC; 82542; 83735-TC; 84439; 84443-TC; 84484; 84702-TC; 85025; 93005; 93306; 95816; 96365; 96366; 96375; 99285; G0378; G0482; J2060; J2405; J3475